=== PATIENT | female | born 1930 | race Asian ===

== ENCOUNTER 2017-01-13 06:15 | Day surgery (SDC) | payer MEDICARE, OTHER ==
[~2017-01-13] VITALS: Ht 149.9 cm; Wt 53.6 kg
[2017-01-13] MEDS ORDERED: SODIUM CHLORIDE 0.9% 1,000 ML IV ONE ×2 (07:00→14:20)
[2017-01-13] MEDS ORDERED: ICOS1CAP PO (07:01)
[2017-01-13] MEDS ORDERED: CLON.3 PO (07:01)
[2017-01-13] MEDS ORDERED: BENZ-26 PO (07:01)
[2017-01-13] MEDS ORDERED: SITA25 PO (07:01)
[2017-01-13] MEDS ORDERED: DILT120C3 PO (07:01)
[2017-01-13] MEDS ORDERED: ATOR20TA86 PO (07:01)
[2017-01-13] MEDS ORDERED: VITAD5000 PO (07:01)
[2017-01-13] MEDS ORDERED: DIPH25 PO (07:01)
[2017-01-13] MEDS ORDERED: HYDR25TA PO (07:01)
[2017-01-13] MEDS ORDERED: ESOM20CA31 PO (07:01)
[2017-01-13] MEDS ORDERED: EZET10 PO (07:01)
[2017-01-13] MEDS ORDERED: MONT10TA21 PO (07:01)
[2017-01-13] MEDS ORDERED: METO100XL PO (07:01)
[2017-01-13] MEDS ORDERED: VALS160T2 PO (07:01)
[2017-01-13 07:51] LABS: GLUCOSE,POINT OF CARE 108 MG/DL (70-110)
[2017-01-13] MEDS ORDERED: MethylPREDNISolone SOD SUCC 125 MG/2 ML VIAL IVP ONE (09:00)
[2017-01-13] MEDS ORDERED: FentaNYL CITRATE-PF 100 MCG/2 ML VIAL ONE (14:20)
[2017-01-13] MEDS ORDERED: MIDAZOLAM HCL 2 MG/2 ML VIAL ONE (14:20)
[2017-01-13] MEDS ORDERED: MethylPREDNISolone SOD SUCC 125 MG/2 ML VIAL ONE (14:23)
[2017-01-13] MEDS ORDERED: ALBUTEROL SULFATE 2.5 MG/0.5 ML NEB SOLUTION NEB ONE (16:47)
[2017-01-13] MEDS ORDERED: LIDOCAINE HCL 4% 50 ML SOLUTION TP ONE (16:47)
[2017-01-13] MEDS ORDERED: BENZOCAINE 20% 50 MCG/SPRAY 57 GM TP ONE (16:47)
[2017-01-13] MEDS ORDERED: LIDOCAINE HCL 2% 30 ML JELLY TP ONE (16:47)
[2017-01-13] MEDS ORDERED: OXYGEN THERAPY IH SCH (20:00)
== END 2017-01-13 10:10 | disposition home or self-care (01) ==
LOC: SURGERY 06:15
PROVIDERS: ATTEND Internal Medicine Critical Care Medicine
DX: J38.4 Edema of larynx (principal); B37.0 Candidal stomatitis; E11.9 Type 2 diabetes mellitus without complications; H54.41 Blindness, right eye, normal vision left eye
CPT/HCPCS: 31623; 31624; 71010; 82962; 87015 ×2; 87070; 87101; 87147; 87205; 87220; 88108; 88312; 94640; J2250; J2930; J3010; J7030